=== PATIENT | female | born 1990 | race Caucasian/White ===

== ENCOUNTER 2016-12-25 14:08 | Emergency (ER) | payer SELFPAY ==
--- NOTE | 2016-12-25 14:32 | ED.PDOC ---
History of Present Illness - General Chief Complaint: Bite: Animal/Insect/Human Stated Complaint: laceration left ear secondary to dog bite pit bull Time Seen by Provider: 12/25/16 14:27 Source: patient, RN notes reviewed Exam Limitations: no limitations - History of Present Illness Initial Comments: She stated that she was laying on the bed with her 2 kids in the room then pit bull dog was in the room and as he was embracing her daughter the dog suddenly bit her on the left ear. Timing/Duration: just prior to arrival Severity: moderate Improving Factors: nothing Worsening Factors: nothing Associated Symptoms: other - ear pain Allergies/Adverse Reactions: Allergies NO KNOWN ALLERGY Allergy (Verified 12/25/16 15:00) Home Medications: Ambulatory Orders Acetaminophen W/ Codeine [Tylenol w/Codeine 300-30 mg] 1 tab PO TID PRN #14 tab 12/25/16 Amoxicillin & Pot Clavulanate [Augmentin Tab] 1 tab PO BID #20 tab 12/25/16 Amoxicillin [Amoxil] 500 mg PO BID #20 cap 12/25/16 Review of Systems - Review of Systems Constitutional: States: no symptoms reported EENTM: States: see HPI Respiratory: States: no symptoms reported Cardiology: States: no symptoms reported Gastrointestinal/Abdominal: States: no symptoms reported Genitourinary: States: no symptoms reported Musculoskeletal: States: no symptoms reported Skin: States: see HPI Neurological: States: no symptoms reported Endocrine: States: no symptoms reported Hematologic/Lymphatic: States: no symptoms reported Physical Exam - Physical Exam General Appearance: Alert, Anxious Eyes, Ears, Nose, Throat Exam: PERRL/EOMI, TMs normal, pharynx normal, other - laceration skin w/o cartilage invovement left ear Neck: non-tender, full range of motion, supple Cardiovascular/Chest: normal peripheral pulses, regular rate, rhythm, no edema, no gallop, no murmur Respiratory: chest non-tender, lungs clear, normal breath sounds, no respiratory distress Gastrointestinal/Abdominal: normal bowel sounds, non tender, soft, no organomegaly Back Exam: normal inspection, no CVA tenderness Extremity: normal range of motion, non-tender, normal inspection Neurologic: no motor/sensory deficits, alert, normal mood/affect, oriented x 3 Skin Exam: other - skin laceration left ear no cartilage involvement Skin Problem Location: other - left ear Skin Character: other - laceration Lymphatic: no adenopathy Progress - Results/Orders Results/Orders: Animal control notified Departure - Departure Clinical Impression: Dog bite of ear Laceration of ear, external, left Qualifiers: Encounter type: initial encounter Qualifier Code: (S01.312A) Laceration without foreign body of left ear, initial encounter Time of Disposition: 15:29 Disposition: Discharge to Home or Self Care Condition: Good Instructions: DI for Dog Bite Prescriptions: Amoxicillin [Amoxil] 500 mg PO BID #20 cap Amoxicillin & Pot Clavulanate [Augmentin Tab] 1 tab PO BID #20 tab Acetaminophen W/ Codeine [Tylenol w/Codeine 300-30 mg] 1 tab PO TID PRN #14 tab PRN Reason: Pain Home Medications: Ambulatory Orders Acetaminophen W/ Codeine [Tylenol w/Codeine 300-30 mg] 1 tab PO TID PRN #14 tab 12/25/16 Amoxicillin & Pot Clavulanate [Augmentin Tab] 1 tab PO BID #20 tab 12/25/16 Amoxicillin [Amoxil] 500 mg PO BID #20 cap 12/25/16 Additional Instructions: RETURN TO EMERGENCY ROOM NEEDED
[2016-12-25] MEDS ORDERED: BACITRACIN-POLYMYXIN B OINT U/D PACK TOP ONE (14:35)
[2016-12-25] MEDS ORDERED: AMOXICILLIN & POT CLAVULANATE 875 MG TAB PO ONE (14:37)
[2016-12-25] MEDS ORDERED: AMOXICILLIN 500 MG CAP PO ONE (14:39)
[2016-12-25] MEDS ORDERED: HYDROcodone 10MG/APAP 325MG 1 EA TAB PO ONE (14:39)
[2016-12-25] MEDS ORDERED: TETANUS,DIPHTHERIA,PERTUSSIS 1 EA SYG IM ONE (14:40)
[2016-12-25 16:33] VITALS: TEMP 97.7
[2016-12-25 17:24] VITALS: BP 124/88; O2SAT 96
== END 2016-12-25 17:10 | disposition home or self-care (01) ==
LOC: ER 14:08
DX: S01.352A Open bite of left ear, initial encounter (principal); Z23 Encounter for immunization; W54.0XXA Bitten by dog, initial encounter; Y92.003 Bedroom of unspecified non-institutional (private) residence as the place of occurrence of the external cause